=== PATIENT | female | born 1995 | race Caucasian/White ===

== ENCOUNTER 2021-10-06 07:34 | Inpatient (IN) ==
[2021-10-06] MEDS ORDERED: OXYTOCIN 30 UNITS/500 ML BAG IV PRN (08:54)
[2021-10-06] MEDS ORDERED: PENICILLIN G POTASSIUM 6 MU in DEXTROSE 5% 250 ML IV STA (08:54)
[2021-10-06] MEDS ORDERED: miSOPROStoL 25 MCG TAB SL STA (08:54)
--- NOTE | 2021-10-06 09:02 | History & Physical Report ---
Date of Service October 06, 2021 Assessment & Plan (1) 40 weeks gestation of : Plan: Admit, routine labs Misoprostol 25 mcg sublingually every 4 hours After cervix is softened and she has made progress, plan for oxytocin and AROM. Epidural if patient desires Anticipate spontaneous vaginal delivery (2) Rh negative state in antepartum period: Plan: RhoGAM given immediately, will follow up if another dose is indicated (3) Positive GBS test: Plan: We will start IV penicillin G in active labor, or prior to AROM, or if patient spontaneously ruptures (4) Class II obesity: Admission and Anticipated Discharge Date Admission Date: October 06, 2021 History of Present Illness Chief Complaint: IOL Primary Care Provider: NO PCP Patient is a 26-year-old at 40 weeks and 4 days dated by 10-week ultrasound who presents to labor and delivery for induction of labor for post dates. Upon presentation she denies contractions, leaking of fluid or vaginal bleeding. Notes good movement. Denies headache, blurry vision, right upper quadrant or epigastric pain. Otherwise feeling well. Problems this include class II obesity, Rh- status in which she received RhoGAM on July 07, 2021, as well as GBS positive. Ultrasound on October 05, 2021 JEFF was 14.5 cm, cephalic presentation Allergies Allergy/AdvReac Type Severity Reaction Status Date / Time No Known Allergies Allergy Unverified 10/06/21 08:10 Home Medications Medication Instructions Recorded Confirmed Type vit no.95-ferrous 1 tab PO DAILY 10/06/21 10/06/21 History fumarate 28 mg-folic acid 800 mcg tablet () Patient History Medical History No known health problems Surgical History No history of previous surgery Family History Father Hypertension Grandfather (Maternal) Hypertension Grandfather (Paternal) Hypertension Social History Smoking Status: Never smoker Hx Alcohol Use: No Hx Substance Use: No Preferred Language: [place] Communication Ability: Effective Visual Impairment: No Limitations Hearing Ability: Normal Baked And Graphite Inspector Required: No Beliefs That Will Affect Care: None marital status: Current Living Situation: Spouse current occupational status: employed current occupation: [employer] Other Information That Helps Us Care for You: No Feels Safe at Home: Yes Safety Concerns: Feels Safe At This Time Childhood Exposure to Second-Hand Smoke: No caffeine: Yes Dental Care, Regularly: Yes Seatbelt Use: always Sunscreen Use: Yes Do you think of yourself as: straight/heterosexual Sexual Activity: has been sexually active within the last 12 months Gender Identity: Female Assistive Devices: None 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 See record Review of Systems All systems reviewed & are unremarkable except as noted in HPI & below Physical Exam Constitutional: WD/WN, vitals as above Respiratory: normal respiratory effort, lungs clear to auscultation Cardiovascular: RRR, no murmur, no edema Gastrointestinal (Abdomen): normal bowel sounds, soft, nontender, no hepatosplenomegaly EFW [id number] Genitourinary: no vaginal lesions, no adnexal mass OB Exam Abdomen: + fundal height, + heart tones, + vertex and + estimated weight OB Exam Monitor Tracing: + external FHT monitor used, + external uterine monitor used and + category I Cervix: 1/50/-3, sutures fell, membranes swept Results & Data ([facility]) Vital Signs (Past 12 Hours) Vital Signs Pulse BP 10/06/21 08:31 95 H 123/78 10/06/21 08:16 90 128/80 10/06/21 08:01 91 H 126/77 10/06/21 07:45 96 H 130/91 Monitoring External Monitor heart tracing: Baseline 150, moderate variability, positive accelerations no decelerations, category 1 tracing Tocodynamometer Tocometer: No contractions seen
[2021-10-06 09:45] LABS: Hematocrit (blood only) 34.3 % (37-47); Hemoglobin 11.7 g/dL (12.0-16.0); Mean Corpuscular Hemoglobin 30.6 pg (25-34); Mean Corpuscular Hgb Conc 34.1 g/dL (32-36); Mean Corpuscular Volume 89.8 fL (80-100); Mean Platelet Volume 12.1 fL (7.4-10.4); Platelet Count 339 K/uL (130-400); RDW Coefficient of Variation 13.5 % (11.5-14.5); RDW Standard Deviation 44.4 fL (36.4-46.3); Red Blood Count 3.82 M/uL (4.2-5.4); White Blood Count 10.83 K/uL (4.8-10.8)
[2021-10-06] MEDS: LACTATED RINGER'S 1,000 ML IV PRN (16:35)
--- NOTE | 2021-10-06 17:22 | Labor Progress Brief Note ---
Date of Service October 06, 2021 Subjective Strip review, patient more uncomfortable with contractions per nursing staff Assessment & Plan (1) 40 weeks gestation of : Plan: Due to contraction pattern at this time, have been unable to give a second dose of misoprostol. When contractions spaced will give a second dose Plan for oxytocin and AROM after she is made some cervical change. Epidural if patient desires Anticipate spontaneous vaginal delivery (2) Rh negative state in antepartum period: Plan: RhoGAM given immediately, will follow up if another dose is indicated (3) Positive GBS test: Plan: We will start IV penicillin G in active labor, or prior to AROM, or if patient spontaneously ruptures (4) Class II obesity: Admission and Anticipated Discharge Date Admission Date: October 06, 2021 Physical Exam Physical Exam: heart tracing: Baseline 130, moderate variability, positive accelerations, no decelerations, category 1 tracing Tocometer: Contractions every 2 to 5 minutes Cervix: 1/50/-3 checked by RN Results & Data ([facility]) Vital Signs (Past 12 Hours) Vital Signs Temp Pulse Resp BP 10/06/21 11:35 78 20 121/75 10/06/21 08:31 95 H 123/78 10/06/21 08:16 90 128/80 10/06/21 08:01 91 H 126/77 10/06/21 07:45 96 H 130/91 10/06/21 07:44 36.8 C 18
[2021-10-06] MEDS ORDERED: miSOPROStoL 25 MCG TAB SL ONE (19:36)
[2021-10-07] MEDS ORDERED: miSOPROStoL 25 MCG TAB SL ONE (00:27)
[2021-10-07] MEDS: LACTATED RINGER'S 1,000 ML IV PRN ×3 (02:14→17:37)
[2021-10-07] MEDS ORDERED: DINOPROSTONE 10 MG INSERT PV ONE (07:32)
--- NOTE | 2021-10-07 07:50 | Obstetrical Progress Note ---
Date of Service October 07, 2021 Assessment & Plan Admission and Anticipated Discharge Date Admission Date: October 06, 2021 Subjective Patient is seen and examined Reviewed her records and confirmed with her Received 3 doses of SL Cytotec Last dose was at 0048 Had contractions but they spaced out She does not feel painful ctxs VSS Afebrile FHR categ I VE: 1-2 cm/ 70%/ -3, ballotable Plan to start Cervidil now All questions were answered. Results & Data ([facility]) Vital Signs (Past 12 Hours) Vital Signs Temp Pulse Resp BP Pulse Ox 10/07/21 07:14 36.7 C 18 10/07/21 07:12 86 125/80 10/07/21 03:17 36.4 C L 75 15 121/73 10/07/21 03:15 36.4 C L 14 10/07/21 00:14 70 96 10/07/21 00:09 75 97 10/07/21 00:04 70 96 10/06/21 23:59 74 97 10/06/21 23:54 70 97 10/06/21 23:49 73 97 10/06/21 23:44 97 10/06/21 23:39 74 97 10/06/21 23:34 70 97 10/06/21 23:29 72 97 10/06/21 23:26 36.5 C 15 97 10/06/21 23:24 73 97 10/06/21 23:19 79 97 10/06/21 23:17 36.5 C 10/06/21 23:14 65 97 10/06/21 23:11 59 L 120/81
[2021-10-07] MEDS: PENICILLIN G POTASSIUM 3 MU in DEXTROSE 5% 100 ML IV PRN ×2 (12:40→17:36)
[2021-10-07] MEDS ORDERED: BUTORPHANOL TARTRATE 1 MG/ML VIAL ONE (13:38)
[2021-10-07] MEDS ORDERED: OXYTOCIN 30 UNITS/500 ML BAG IV PRN ×2 (14:19→21:22)
--- NOTE | 2021-10-07 14:22 | Obstetrical Progress Note ---
Date of Service October 07, 2021 Assessment & Plan Admission and Anticipated Discharge Date Admission Date: October 06, 2021 Subjective Patient is reevaluated SROM'ed at 12:15, clear Received Stadol for pain FHR categ I Ve: 4/ 80%/-2 Removed cervidil ctxs q4-6 min Plan t start Oxytocin per protocol Results & Data ([facility]) Vital Signs (Past 12 Hours) Vital Signs Temp Pulse Resp BP 10/07/21 14:00 18 10/07/21 13:52 86 135/90 10/07/21 13:30 36.7 C 18 10/07/21 12:35 18 10/07/21 11:28 36.6 C 63 18 123/84 10/07/21 09:30 18 10/07/21 09:00 18 10/07/21 07:14 36.7 C 18 10/07/21 07:12 86 125/80 10/07/21 03:17 36.4 C L 75 15 121/73 10/07/21 03:15 36.4 C L 14
[2021-10-07] MEDS ORDERED: TERBUTALINE SULFATE 1 MG/ML VIAL ONE (15:14)
--- NOTE | 2021-10-07 15:28 | Anesthesiology Consultation ---
Date of Service October 07, 2021 Assessment & Plan (1) Encounter for pre-operative examination: Chart Review Chart Review: Acceptable Risk for Surgery History Height/Weight Height: 5 ft 3 in Weight: 94.347 kg Allergies Allergy/AdvReac Type Severity Reaction Status Date / Time No Known Allergies Allergy Unverified 10/06/21 08:10 Medications Home Medications Medication Instructions Recorded Confirmed Last Taken vit no.95-ferrous 1 tab PO DAILY 10/06/21 10/06/21 10/04/21 10:00 fumarate 28 mg-folic acid 800 mcg tablet () Active Medications Generic Name Dose Route Start Last Admin Trade Name Freq PRN Reason Stop Dose Admin Lactated Ringer's 1,000 mls @ 125 mls/hr 10/06/21 08:54 10/07/21 13:47 Lr IV 10/08/21 08:53 125 mls/hr .Q8H PRN Infusion L&D Protocol Protocol Penicillin G Potassium 3 mu/ 106 mls @ 100 mls/hr 10/06/21 11:54 10/07/21 13:45 Dextrose IV 10/16/21 11:53 Infused Q4H PRN Infusion GBS(+) Until Delivery Oxytocin 30 units in 500 mls @ 2 mls/hr 10/07/21 14:19 10/07/21 14:33 Pitocin IV 10/09/21 14:18 0.12 units/hr .Q24H PRN 2 mls/hr Labor Induction/Augmentation Administration Protocol 0.12 UNITS/HR NPO Last Intake of Fluids Comment: Sips Last Intake of Solids Comment: 11am Exercise / Class Metabolic Activity II 4-5 Yardwork/Stairs/Walk up hill Past Family History Family History Father Hypertension Grandfather (Maternal) Hypertension Grandfather (Paternal) Hypertension Past Surgical History Surgical History History of tonsillectomy and adenoidectomy Past Anesthesia History No Hx of Anesthesia Complications History of PONV No Hx of PONV and No Hx of Motion Sickness Social History Smoking Status: Never smoker Hx Alcohol Use: No Hx Substance Use: No Physical Exam Vital Signs Last Vital Signs Temp 36.5 C 10/07/21 14:37 Pulse 103 H 10/07/21 15:21 Resp 18 07/07/22 15:03 BP 127/80 10/07/21 14:37 Pulse Ox 100 10/07/21 15:21 Testing Laboratory Results 10/06/21 09:11 Blood Type A Negative 10/06/21 09:11 Antibody Screen Cancelled 10/06/21 09:11 Antibody Screen NEGATIVE 10/06/21 09:11
[2021-10-07] MEDS ORDERED: LIDOCAINE 2%/EPINEPHRINE 1:200,000 20 ML SDV ONE (15:29)
[2021-10-07] MEDS ORDERED: BUPIVACAINE 0.25% 30 ML VIAL ONE (15:29)
[2021-10-07] MEDS ORDERED: fentaNYL citrate 100 MCG/2 ML VIAL ONE (15:29)
[2021-10-07] MEDS ORDERED: SODIUM CHLORIDE 0.9% INJ 10 ML VIAL ONE (15:29)
[2021-10-07] MEDS ORDERED: ePHEDrine sulfate 50 MG/ML AMP ONE (15:29)
[2021-10-07] MEDS ORDERED: fentaNYL 2MCG/ML ROPIVACAINE 1.25MG/ML 100 ML BAG EPI ONE (15:30)
--- NOTE | 2021-10-07 15:32 | Obstetrical Progress Note ---
Date of Service October 07, 2021 Assessment & Plan Admission and Anticipated Discharge Date Admission Date: October 06, 2021 Subjective Patient suddenly became painful and asked for epidural While getting ready FHR had deceleration to 90-100's Pitocin was at 4, stopped and IVF boulus and nasal O2 was started by her nurse VE; 7/ 90%/0 FHR recovered and had another decel VE; 9/ 90%/+1, vaginal/ pelvic muscles tense Patient is very painful, ctxs q 2 min Terbutaline was given and she was turned to other side, FHR recovered to 120- 130'S Anesthesia is mow at bed side and getting ready for epidural Continue to monitor closely Results & Data ([facility]) Vital Signs (Past 12 Hours) Vital Signs Temp Pulse Resp BP Pulse Ox 10/07/21 15:26 105 H 100 10/07/21 15:21 103 H 100 10/07/21 15:16 116 H 100 10/07/21 15:11 102 H 100 10/07/21 15:03 18 10/07/21 14:37 36.5 C 72 18 127/80 10/07/21 14:30 18 10/07/21 14:00 18 10/07/21 13:52 86 135/90 10/07/21 13:30 36.7 C 18 10/07/21 12:35 18 10/07/21 11:28 36.6 C 63 18 123/84 10/07/21 09:30 18 10/07/21 09:00 18 10/07/21 07:14 36.7 C 18 10/07/21 07:12 86 125/80
[2021-10-07] MEDS ORDERED: ONDANSETRON INJ 2 MG/ML 2 ML VIAL IV PRN (15:52)
[2021-10-07] MEDS ORDERED: fentaNYL 2MCG/ML ROPIVACAINE 1.25MG/ML 100 ML BAG EPI PRN (15:52)
[2021-10-07] MEDS ORDERED: ePHEDrine sulfate 50 MG/ML AMP IV PRN (15:52)
[2021-10-07] MEDS ORDERED: NALOXONE HCL 0.4 MG/1 ML VIAL/CARP IV PRN (15:52)
[2021-10-07] MEDS ORDERED: NALOXONE HCL 1 MG in SODIUM CHLORIDE 0.9% 1000ML 1,000 ML IV PRN (15:52)
--- NOTE | 2021-10-07 16:06 | Obstetrical Progress Note ---
Date of Service October 07, 2021 Assessment & Plan Admission and Anticipated Discharge Date Admission Date: October 06, 2021 Subjective FHR had been categ I Received epidural for pain Will restart Oxytocin and continue to monitor closely Results & Data ([facility]) Vital Signs (Past 12 Hours) Vital Signs Temp Pulse Resp BP Pulse Ox 10/07/21 16:04 112 H 136/88 10/07/21 16:01 114 H 151/78 H 99 10/07/21 15:58 117 H 145/75 H 10/07/21 15:56 115 H 100 10/07/21 15:55 117 H 143/67 H 10/07/21 15:52 117 H 139/79 10/07/21 15:51 116 H 100 10/07/21 15:49 120 H 143/72 H 10/07/21 15:46 115 H 138/71 100 10/07/21 15:42 116 H 156/74 H 10/07/21 15:41 117 H 99 10/07/21 15:36 117 H 99 10/07/21 15:31 119 H 100 10/07/21 15:26 105 H 100 10/07/21 15:21 103 H 100 10/07/21 15:16 116 H 100 10/07/21 15:11 102 H 100 10/07/21 15:03 18 10/07/21 14:37 36.5 C 72 18 127/80 10/07/21 14:30 18 10/07/21 14:00 18 10/07/21 13:52 86 135/90 10/07/21 13:30 36.7 C 18 10/07/21 12:35 18 10/07/21 11:28 36.6 C 63 18 123/84 10/07/21 09:30 18 10/07/21 09:00 18 10/07/21 07:14 36.7 C 18 10/07/21 07:12 86 125/80
--- NOTE | 2021-10-07 17:57 | Obstetrical Progress Note ---
Date of Service October 07, 2021 Assessment & Plan Admission and Anticipated Discharge Date Admission Date: October 06, 2021 Subjective Patient is comfortable now, denies pain or pressure. Vaginal exam, fully dilated, head at +1 station, direct OP, heart rate category 1, [place] with contractions every 2 to 4 minutes oxytocin is at 4 miu/min Continue to monitor closely, Will start pushing when she feels pressure or urge to push Results & Data ([facility]) Vital Signs (Past 12 Hours) Vital Signs Temp Pulse Resp BP Pulse Ox 10/07/21 17:55 111 H 94 10/07/21 17:51 102 H 95 10/07/21 17:49 101 H 124/75 10/07/21 17:47 101 H 94 10/07/21 17:46 102 H 94 10/07/21 17:41 104 H 95 10/07/21 17:36 104 H 95 10/07/21 17:35 106 H 130/81 10/07/21 17:31 113 H 97 10/07/21 17:30 18 10/07/21 17:26 113 H 97 10/07/21 17:25 10 L 10/07/21 17:22 130 H 92 10/07/21 17:21 108 H 129/80 95 10/07/21 17:16 102 H 95 10/07/21 17:11 104 H 97 10/07/21 17:08 18 10/07/21 17:06 110 H 167/86 H 95 10/07/21 17:01 115 H 96 10/07/21 17:00 18 10/07/21 16:56 111 H 95 10/07/21 16:52 111 H 94 10/07/21 16:51 109 H 94 10/07/21 16:49 109 H 137/77 10/07/21 16:46 112 H 95 10/07/21 16:41 103 H 97 10/07/21 16:36 105 H 97 10/07/21 16:35 104 H 144/81 H 10/07/21 16:31 107 H 97 10/07/21 16:30 18 10/07/21 16:26 108 H 98 10/07/21 16:21 109 H 98 10/07/21 16:19 107 H 140/78 10/07/21 16:16 108 H 140/79 99 10/07/21 16:13 111 H 150/74 H 10/07/21 16:11 111 H 183/83 H 99 10/07/21 16:10 110 H 171/101 H 10/07/21 16:07 113 H 123/73 10/07/21 16:06 115 H 99 10/07/21 16:04 112 H 136/88 10/07/21 16:01 114 H 151/78 H 99 10/07/21 16:00 18 10/07/21 15:58 117 H 145/75 H 10/07/21 15:56 115 H 100 10/07/21 15:55 117 H 143/67 H 10/07/21 15:52 117 H 139/79 10/07/21 15:51 116 H 100 10/07/21 15:49 120 H 143/72 H 10/07/21 15:46 115 H 138/71 100 10/07/21 15:45 36.4 C L 18 10/07/21 15:42 116 H 156/74 H 10/07/21 15:41 117 H 99 10/07/21 15:36 117 H 99 10/07/21 15:31 119 H 100 10/07/21 15:30 18 10/07/21 15:26 105 H 100 10/07/21 15:21 103 H 100 10/07/21 15:16 116 H 100 10/07/21 15:11 102 H 100 10/07/21 15:03 18 10/07/21 14:37 36.5 C 72 18 127/80 10/07/21 14:30 18 10/07/21 14:00 18 10/07/21 13:52 86 135/90 10/07/21 13:30 36.7 C 18 10/07/21 12:35 18 10/07/21 11:28 36.6 C 63 18 123/84 10/07/21 09:30 18 10/07/21 09:00 18 10/07/21 07:14 36.7 C 18 10/07/21 07:12 86 125/80
[2021-10-07] MEDS ORDERED: MINERAL OIL 30 ML UDC ONE (20:12)
[2021-10-07] MEDS ORDERED: LIDOCAINE 1% LOCAL 20 ML VIAL ONE (20:43)
[2021-10-07] MEDS ORDERED: BENZOCAINE 20% AER SPR 82.5 GM CAN EXT PRN (21:22)
[2021-10-07] MEDS ORDERED: oxyCODONE/ACETAMINOPHEN 5mg/325mg TAB PO PRN (21:22)
[2021-10-07] MEDS ORDERED: bisacodyL 10 MG SUPP PR PRN (21:22)
[2021-10-07] MEDS ORDERED: ACETAMINOPHEN 325 MG TAB PO PRN (21:22)
[2021-10-07] MEDS ORDERED: HYDROCORTISONE ACETATE 25 MG SUPP PR PRN (21:22)
[2021-10-07] MEDS ORDERED: MEASLES, MUMPS & RUBELLA VIRUS VIAL SQ ONE (21:22)
[2021-10-07] MEDS ORDERED: DIPHTHERIA/TETANUS/PERTUSSIS 0.5 ML SYR/VIAL IM ONE (21:22)
--- NOTE | 2021-10-07 21:30 | Anesthesia Procedure Note ---
Date of Service October 07, 2021 Anesthesia Post Epidural Note Vital Signs Vital Signs: Temp Pulse Resp BP Pulse Ox 37.2 C 103 H 18 143/63 H 96 10/07/21 19:01 10/07/21 21:25 10/07/21 19:01 10/07/21 21:25 10/07/21 21:06 Pain Intensity Lower Back: Pain Intensity: 0 Abdomen: Pain Intensity: 0 Notes Mental Status: alert / awake / arousable and participated in evaluation Nausea / Vomiting: adequately controlled Pain: adequately controlled Airway Patency, RR, SpO2: stable & adequate BP & HR: stable & adequate Hydration State: stable & adequate Neuraxial Anesthesia: was administered and sensory block is resolving Anesthetic Complications: no major complications apparent Epidural: Removed without complications and With tip intact
--- NOTE | 2021-10-07 21:35 | Delivery Summary ---
Vaginal Delivery Summary Date of Service October 07, 2021 Vaginal Delivery Summary Patient was found to be fully dilated and desired to push. She pushed for 1.5 hours and delivered the without difficulty. The shoulders were delivered with minimal traction. There was nuchal cord around the neck x1, it was reduced and the baby was handed off to the mother where mouth and nose were suctioned. The cord was clamped x2 and cut at 1 minute delay. The baby was vigorously moving and crying. Then the cord blood was obtained. The vagina and perineum were checked for lacerations. There was a second-degree perineal laceration at the posterior fourchette. It was checked with rectal exam and then excellent sphincter tone was noted. Allis clamps were used to grasp to muscles around the external sphincter and perineal body support repair. The gloves were changed and the muscles held by Allis clamps were sutured with 2-0 Vicryl with [id number] stitches x2. The rectal exam was repeated and excellent sphincter was again noted and no sutures were felt. The rest of the perineal body muscles were reapproximated with another sterile 2-0 Vicryl. The rest of the laceration including vaginal mucosa were repaired with 2-0 vicryl in continuous fashion, the skin was in subcuticular fastion with 3-0 vicryl. It was hemostatic. And the placenta was found to be in the vagina, delivered spontaneously as intact and complete. Uterus was explored and found to be empty, the lower segment was cleared of all clots and debris's. Fundus was firm and EBL was 200 mL. Mom and baby tolerated the procedure well. The sponge needle instrument counts was correct x2. Baby was a viable male infant Apgars were 8/9 and weight is pending. No complications happened and I was present during whole procedure.
[2021-10-08 06:35] LABS: Hematocrit (blood only) 27.2 % (34.1-44.9); Hemoglobin 9.5 g/dl (12.0-16.0); Mean Corpuscular Hemoglobin 31.7 pg (25.0-34.0); Mean Corpuscular Hgb Conc 34.9 g/dL (32.0-36.0); Mean Corpuscular Volume 90.7 fL (80.0-100.0); Mean Platelet Volume 11.9 fL (9.4-12.3); Platelet Count 290 K/uL (130-400); RDW Coefficient of Variation 13.4 % (11.5-14.5); RDW Standard Deviation 44.2 fL (36.4-46.3); White Blood Count 16.31 K/ul (4.8-10.8)
[2021-10-08] MEDS: IBUPROFEN 600 MG TAB PO PRN ×3 (06:49→20:49)
--- NOTE | 2021-10-08 07:37 | Obstetrical Progress Note ---
Date of Service October 08, 2021 Assessment & Plan (1) Normal course: Continue routine PP care Anticipate d/c home tomorrow (2) Positive GBS test: (3) Rh negative state in antepartum period: RhoGAM to be given if indicated Subjective Ambulation: ambulating normally Voiding: no voiding problems Passing Gas:: Yes Diet Tolerance:: regular diet Lochia:: Small Feeding Type:: bottle feeding Current Pain Level(1-10): 0 Doing well, no complaints at this time Physical Exam Constitutional WD/WN, vitals as above Respiratory normal respiratory effort, lungs clear to auscultation Cardiovascular RRR, no murmur, no edema Gastrointestinal (Abdomen) normal bowel sounds, soft, nontender, no hepatosplenomegaly Results & Data ([facility]) Vital Signs (Past 12 Hours) Vital Signs Temp Pulse Pulse Resp BP BP Pulse Ox 10/08/21 00:00 36.7 C 78 16 110/73 97 10/07/21 23:16 93 H 116/72 10/07/21 23:15 93 H 18 116/72 10/07/21 23:06 88 111/70 10/07/21 22:50 94 H 122/74 10/07/21 22:45 94 H 18 122/74 10/07/21 22:31 96 H 111/68 10/07/21 22:16 93 H 107/64 10/07/21 22:15 94 H 18 122/74 10/07/21 22:01 97 H 115/67 10/07/21 22:00 96 H 18 122/74 10/07/21 21:46 96 H 122/74 10/07/21 21:45 96 H 18 122/74 10/07/21 21:31 93 H 126/71 10/07/21 21:30 103 H 18 10/07/21 21:25 103 H 143/63 H 10/07/21 21:15 103 H 18 143/63 H 10/07/21 21:06 101 H 96 10/07/21 21:01 96 H 117/66 95 10/07/21 20:56 95 H 95 10/07/21 20:51 94 H 96 10/07/21 20:49 90 113/62 10/07/21 20:46 93 H 97 10/07/21 20:41 104 H 97 10/07/21 20:36 109 H 136/77 95 10/07/21 20:31 103 H 96 10/07/21 20:26 105 H 96 10/07/21 20:21 114 H 97 10/07/21 20:19 102 H 121/75 10/07/21 20:16 96 H 93 10/07/21 20:11 114 H 97 10/07/21 20:06 104 H 96 10/07/21 20:04 104 H 122/74 10/07/21 20:01 102 H 96 10/07/21 19:56 119 H 94 10/07/21 19:51 103 H 95 10/07/21 19:50 107 H 118/74 10/07/21 19:46 118 H 96 10/07/21 19:41 113 H 95 Laboratory Results H/H 9.5/27.2%
[2021-10-08] MEDS: DOCUSATE SODIUM 100 MG CAP PO SCH ×2 (08:39→20:50)
[2021-10-08] MEDS: PRENATAL VITAMIN 1 TAB PO SCH (08:39)
[2021-10-08] MEDS: FERROUS SULFATE 325 MG TAB PO SCH (08:39)
[2021-10-08] MEDS ORDERED: bisacodyL 5 MG TABEC PO SCH (20:00)
[2021-10-09 06:47] LABS: Hematocrit (blood only) 25.6 % (34.1-44.9); Hemoglobin 8.6 g/dl (12.0-16.0)
[2021-10-09] MEDS: PRENATAL VITAMIN 1 TAB PO SCH (08:17)
[2021-10-09] MEDS: DOCUSATE SODIUM 100 MG CAP PO SCH (08:17)
[2021-10-09] MEDS: FERROUS SULFATE 325 MG TAB PO SCH (08:17)
[2021-10-09] MEDS: IBUPROFEN 600 MG TAB PO PRN (08:17)
--- NOTE | 2021-10-09 09:57 | Obstetrical Progress Note ---
Date of Service October 09, 2021 Assessment & Plan (1) Normal course: PPD #2 pt doing well disch home with instructions Subjective Ambulation: ambulating normally Voiding: no voiding problems Passing Gas:: Yes Diet Tolerance:: regular diet Lochia:: Small Feeding Type:: breast feeding Review of Systems All systems reviewed & are unremarkable except as noted in HPI & below Physical Exam Constitutional WD/WN, vitals as above well developed and well nourished Eyes PERRL, conjunctivae normal, anicteric sclerae Neck trachea midline, no thyromegaly Respiratory normal respiratory effort, lungs clear to auscultation Auscultation: no crackles, no rales and no wheezes Cardiovascular RRR, no murmur, no edema Gastrointestinal (Abdomen) normal bowel sounds, soft, nontender, no hepatosplenomegaly Uterus is below umbilicus Musculoskeletal no cyanosis or clubbing, extremities motor strength 5/5 Skin no rashes, warm and dry Neurologic patellar DTR's 2+ bilat, sensation intact Psychiatric A+Ox3, euthymic affect Genitourinary normal external appearance Results & Data ([facility]) Vital Signs (Past 12 Hours) Vital Signs Temp Pulse Resp BP Pulse Ox 10/08/21 23:35 36.7 C 99 H 18 112/78 99
== END 2021-10-09 12:30 | disposition home or self-care (01) | DRG 807 ==
LOC: 4S1 07:34 → 4E2 10-07 23:39